=== PATIENT | male | born 1955 | race Two or more races ===

== ENCOUNTER 2016-07-18 05:45 | Day surgery (SDC) | payer OTHER ==
[~2016-07-18 05:45] MED LIST: GLUCOPHAGE1000 M1 PO; HYDROCHLOROTHIA25 M1 PO; LANTUS100 UNITS/ SC; LIPITOR80 M1 PO; LISINOPRIL40 M1 PO; PROTONIX40 M2 PO; [UNRECOGNIZED DRUG - REMARK]
[2016-07-18 06:49] LABS: BASO % 1.2 % (0-2); EOSINOPHIL ABSOLUTE COUNT 0.1 tho/cmm (0.0-0.7); HCT-HEMATOCRIT 25.8 % (36.0-53.5); HGB-HEMOGLOBIN 7.9 gm/dl (13.5-17.0); LYMPH % 15.8 % (20-45); LYMPH ABSOLUTE COUNT 0.4 tho/cmm (0.8-4.5); MCH (MEAN CORPUSCULAR HGB) 24.1 pg (28.0-32.0); MCHC MEAN CORPUSCULAR HGB CONC 30.6 % (32.0-36.0); MCV (MEAN CELL VOLUME) 78.7 fl (82.0-96.0); MONO % 9.6 % (0-12); MONOCYTE ABSOLUTE COUNT 0.3 tho/cmm (0.0-1.2); NEUTROPHIL ABSOLUTE COUNT 1.8 tho/cmm (1.6-8.0); NEUTROPHIL-AUTOMATED 1.8 tho/cmm (1.6-8.0); NEUTROPHILS % 68.4 % (40-80); RED BLOOD COUNT 3.28 mil/cmm (4.40-5.70); RED CELL DISTRIBUTION WIDTH 17.3 % (12.4-16.4); WHITE BLOOD COUNT 2.6 tho/cmm (4.0-10.0)
[2016-07-18 06:58] LABS: ANION GAP 12 mmol/L (0-20); BLOOD UREA NITROGEN 12 mg/dl (6-24); CALCIUM 8.8 mg/dl (8.5-10.5); CARBON DIOXIDE-VENOUS 27 mmol/L (22-32); CHLORIDE 106 mmol/l (96-110); CREATININE 0.78 mg/dl (0.60-1.30); GLUCOSE 109 mg/dL (70-110); POTASSIUM 3.4 mmol/L (3.7-5.1); SODIUM 142 mmol/L (135-145); eGFR VALUE FOR BLACK >90 mL/Min
[2016-07-18 07:25] LABS: PLATELET COUNT 43 tho/cmm (150-450)
[2016-07-18] MEDS ORDERED: LEXAPRO10 M2 PO (07:32)
[2016-07-18] MEDS ORDERED: FEOSOL325 M1 PO (07:33)
[2016-07-18 09:56] LABS: INR 1.1 INR (0.9-1.1); PROTHROMBIN TIME 13.3 SECONDS (9.0-13.6)
[2016-07-18 10:07] LABS: ALB/GLOB RATIO 0.7 (0.8-2.0); ALBUMIN 3.2 g/dl (3.5-5.0); ALKALINE PHOSPHATASE 86 U/L (33-138); ALT/SGPT 32 U/L (12-78); ANION GAP 15 mmol/L (0-20); AST/SGOT 44 U/L (10-40); BLOOD UREA NITROGEN 12 mg/dl (6-24); CALCIUM 8.9 mg/dl (8.5-10.5); CARBON DIOXIDE-VENOUS 25 mmol/L (22-32); CHLORIDE 109 mmol/l (96-110); GLUCOSE 105 mg/dL (70-110); POTASSIUM 3.6 mmol/L (3.7-5.1); SODIUM 145 mmol/L (135-145); eGFR VALUE FOR BLACK >90 mL/Min
== END 2016-07-18 10:40 ==
LOC: ENDOS 05:45 → SHSA 05:46
PROVIDERS: Anesthesiology; Specialist
PROC: 06L34CZ Occlusion of Esophageal Vein with Extraluminal Device, Percutaneous Endoscopic Approach (ICD-10-PCS; principal; 2016-07-18)
DX: I85.00 Esophageal varices without bleeding (principal); K31.9 Disease of stomach and duodenum, unspecified; I10 Essential (primary) hypertension; E11.9 Type 2 diabetes mellitus without complications; K21.9 Gastro-esophageal reflux disease without esophagitis; F10.10 Alcohol abuse, uncomplicated; Z79.4 Long term (current) use of insulin; Z79.84 Long term (current) use of oral hypoglycemic drugs; Z79.899 Other long term (current) drug therapy; Z98.890 Other specified postprocedural states; Z87.11 Personal history of peptic ulcer disease; D69.6 Thrombocytopenia, unspecified; K74.60 Unspecified cirrhosis of liver; D62 Acute posthemorrhagic anemia; K76.6 Portal hypertension